=== PATIENT | female | born 1975 | race Caucasian/White ===

== ENCOUNTER 2017-03-28 09:50 | Observation (INO) | payer OTHER ==
[~2017-03-28 09:50] MED LIST: CALCIUM + D T1 UDTAB PO; CALCIUM500 M1; COD LIVER OIL1 CAP PO; NO HOME MEDICATION XX; NORCO 5/325 TAB1 TAB PO; PRENATAL1 TAB; PROMETRIUM200 MG; PROMETRIUM200 MG PO
[2017-03-28] MEDS ORDERED: PRENATAL VITAM1 EA12 (10:57)
== END 2017-03-28 12:25 ==
LOC: LDR 09:50
PROVIDERS: ADMIT Obstetrics & Gynecology Obstetrics
DX: O46.92 Antepartum hemorrhage, unspecified, second trimester (principal); Z3A.26 26 weeks gestation of pregnancy; Z79.899 Other long term (current) drug therapy; Z88.1 Allergy status to other antibiotic agents; Z88.2 Allergy status to sulfonamides; Z98.890 Other specified postprocedural states